=== PATIENT | male | born 1985 | race Caucasian/White ===

== ENCOUNTER → 2017-01-14 | Outpatient (CLI) | payer OTHER ==
--- NOTE | 2017-01-14 14:33 | REP ---
THREE-PHASE BONE SCAN OF THE LUMBAR REGION. HISTORY: Spondylosis. Injury. Progressive back pain. Comparison lumbar spine MRI study June 25, 2016. Comparison radiographs April 24, 2016. 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 TECHNIQUE: 21.8 mCi technetium 99m MDP is injected and standard three-phase imaging was acquired. SCINTIGRAPHIC FINDINGS: The anterior posterior flow study is normal. Blood pool images show normal vascular and early renal and bladder uptake. No abnormal localized spine uptake is seen. Delayed scan images show normal distribution of skeletal uptake. No abnormal skeletal uptake is seen. IMPRESSION: Normal three-phase bone scan of the lumbar spine. Signed by Cruz Gonzalez MD 01/14/2017 04:47 P
== END ==
LOC: M RAD 09:51
PROVIDERS: ATTEND Orthopaedic Surgery
DX: M47.896 Other spondylosis, lumbar region (principal)